=== PATIENT | male | born 1995 | race Two or more races ===

== ENCOUNTER 2017-10-16 07:15 | Emergency (ER) | payer OTHER ==
[~2017-10-16] VITALS: Ht 182.9 cm; Wt 86.2 kg
[2017-10-16 07:25] VITALS: BP 136/83
== END 2017-10-16 07:37 | disposition home or self-care (01) ==
LOC: ER 07:18
DX: L05.91 Pilonidal cyst without abscess (principal); Z91.013 Allergy to seafood
CPT/HCPCS: A4606; Z7610